=== PATIENT | male | born 1980 | race Caucasian/White ===

== ENCOUNTER → 2016-12-11 | Outpatient (CLI) | payer BC ==
--- NOTE | 2016-12-14 15:23 | SLEEPCENT ---
DATE OF PROCEDURE: 12/11/2016 REQUESTING PROVIDER: Dee Nguyen NP INTERPRETATION: Nocturnal polysomnography was performed for the titration of pressure therapy in this patient with obstructive sleep apnea syndrome, confirmed by karely testing and revealing a respiratory event index of 15.8. For testing, the patient was fit with a Arganteal Simplus full face mask of small size, 4 cm of water pressure were applied to the circuit, and the lights were extinguished. 7 hours and 33 minutes of data were reviewed. There were 373 minutes of sleep identified. Sleep latency was mildly prolonged at 10.5 minutes. Rapid eye movement (REM) latency was prolonged at 183 minutes. Sleep architecture improved over the course of the study. Overall sleep efficiency was 83.8%. The patient's EKG showed a sinus rhythm with an average heart rate of 56 beats per minute. Electroencephalogram (EEG) showed reasonably normal waveforms for awake and sleep. Respiratory events were found best palliated with a CPAP at a pressure of 7. CPAP tolerance was good. There was some limb activity, two trains of 30 events. Limb movement arousal index was borderline at 8.8. IMPRESSION: Obstructive sleep apnea syndrome (G47.33). RECOMMENDATIONS: Nightly use of pressure therapy at 7 cm of water.
== END ==
LOC: M SLEEP 20:00
PROVIDERS: ATTEND Nurse Practitioner Adult Health
DX: G47.33 Obstructive sleep apnea (adult) (pediatric) (principal)

== ENCOUNTER → 2019-01-20 | Outpatient (REF) | payer BC | LOC: M LAB REF 12:24 | PROVIDERS: ATTEND Physician Assistant Medical | DX: J02.9 Acute pharyngitis, unspecified (principal) ==

== ENCOUNTER → 2019-12-03 | Outpatient (REF) | payer BC | LOC: M LAB REF 19:10 | PROVIDERS: ATTEND Physician Assistant | DX: R05 Cough (principal) ==

== ENCOUNTER 2022-06-24 09:56 | Emergency (ER) | payer BC, OTHER ==
[~2022-06-24] VITALS: Ht 167.6 cm; Wt 91.9 kg
[2022-06-24 09:57] VITALS: BP 119/75
== END 2022-06-24 11:15 | disposition home or self-care (01) ==
LOC: M ED 09:56
DX: S62.502A Fracture of unspecified phalanx of left thumb, initial encounter for closed fracture (principal); W23.0XXA Caught, crushed, jammed, or pinched between moving objects, initial encounter; Y92.9 Unspecified place or not applicable; Y93.9 Activity, unspecified; Y99.0 Civilian activity done for income or pay

== ENCOUNTER → 2023-01-14 | Outpatient (REF) | payer OTHER ==
[2023-01-15 20:08] LABS: TESTOSTERONE FREE (DIRECT) 5.3 pg/mL (6.8-21.5)
== END ==
LOC: M LAB REF 13:09
PROVIDERS: ATTEND Physician Assistant Medical
DX: R68.82 Decreased libido (principal)

== ENCOUNTER → 2023-04-18 | Outpatient (REF) | payer OTHER ==
[2023-04-19 12:15] LABS: LUTEINIZING HORMONE 1.4 mIU/ML (1.5-9.3); THYROID STIMULATING HORMONE 1.826 uIU/ML (0.55-4.78)
[2023-04-19 12:16] LABS: FOLLICLE STIMULATING HORMONE 4.4 mIU/ML (1.4-18.1); PROLACTIN 7.9 NG/ML (2.1-17.7)
[2023-04-19 12:17] LABS: FREE T4 1.07 NG/DL (0.89-1.76)
[2023-04-23 12:09] LABS: TESTOSTERONE %FREE+WEAKLY BOUN 32.8 % (9.0-46.0); TESTOSTERONE FREE+WEAKLY BOUND 71.5 ng/dL (40.0-250.0); TESTOSTERONE TOTAL 218 ng/dL (264-916)
== END ==
LOC: M LABDRWAD 13:03
PROVIDERS: ATTEND Nurse Practitioner Family
DX: E29.1 Testicular hypofunction (principal)

== ENCOUNTER → 2024-10-23 | Outpatient (CLI) | payer OTHER | LOC: M EKG 12:02 | PROVIDERS: ATTEND Anesthesiology | DX: R06.81 Apnea, not elsewhere classified (principal); R06.83 Snoring; G47.9 Sleep disorder, unspecified ==

== ENCOUNTER 2024-11-02 08:01 | Day surgery (SDC) | payer OTHER ==
[~2024-11-02] VITALS: Ht 170.2 cm; Wt 95.3 kg
[2024-11-02] MEDS ORDERED: NS (Normal Saline) 0.9% 1,000 ML IV SCH (08:25)
[2024-11-02] MEDS ORDERED: ONDANSETRON 4MG 2ML VIAL As Ordered ONE (08:59)
[2024-11-02] MEDS ORDERED: LIDOCAINE 2% 100MG/5ML SDV (FOR ANES.) As Ordered ONE (08:59)
[2024-11-02] MEDS ORDERED: SUGAMMADEX SODIUM 500 MG/5 ML VIAL (BRIDION) As Ordered ONE (08:59)
[2024-11-02] MEDS ORDERED: ROCURONIUM BROMIDE 50MG/5ML VIAL As Ordered ONE (08:59)
[2024-11-02] MEDS ORDERED: propofoL 200 MG/20 ML VIAL As Ordered ONE (08:59)
[2024-11-02] MEDS ORDERED: fentaNYL 250 MCG/5 ML INJECTION As Ordered ONE (09:04)
[2024-11-02] MEDS ORDERED: MIDAZOLAM INJ 2MG/2ML VIAL As Ordered ONE (09:04)
[2024-11-02] MEDS: COCAINE 4% 4ML NASAL SOLUTION BTL As Ordered ONE (10:13)
[2024-11-02] MEDS: LIDOCAINE W/EPINEPHRINE 1% 20ML VIAL As Ordered ONE (10:54)
[2024-11-02] MEDS: OXYMETAZOLINE 0.05% NASAL SPRAY (AFRIN) As Ordered ONE (10:54)
[2024-11-02] MEDS ORDERED: MEPERIDINE 25 MG/ML 1ML VIAL IV PRN (11:00)
[2024-11-02] MEDS ORDERED: fentaNYL 100 MCG/2 ML INJECTION IV PRN (11:00)
[2024-11-02] MEDS ORDERED: ONDANSETRON 4MG 2ML VIAL IV PRN (11:00)
[2024-11-02] MEDS ORDERED: ACETAMINOPHEN 1000MG/100ML IV BAG As Ordered ONE (11:51)
[2024-11-02 12:20] VITALS: BP 128/80; TEMP 97.6; O2SAT 98
[2024-11-02] MEDS: oxyCODONE 5MG TAB PO PRN (13:08)
== END 2024-11-02 13:19 | disposition home or self-care (01) ==
LOC: M SDC 08:01
PROVIDERS: ATTEND Otolaryngology
DX: J34.3 Hypertrophy of nasal turbinates (principal); J34.2 Deviated nasal septum; G47.30 Sleep apnea, unspecified; Z87.891 Personal history of nicotine dependence; J30.89 Other allergic rhinitis
CPT/HCPCS: 30140; 30520; C9143; J0131; J1100; J2250; J2405; J3010

== ENCOUNTER 2024-11-05 17:57 | Emergency (ER) | payer BC, OTHER ==
[~2024-11-05] VITALS: Ht 170.2 cm; Wt 92.6 kg
[2024-11-05 19:40] LABS: BASO # 0.1 10^3/uL (0.0-0.2); BASO % 0.3 % (0.0-1.0); EOS # 0.2 10^3/uL (0.0-0.5); EOS % 1.2 % (0.0-3.0); HEMATOCRIT 38.5 % (42.0-52.0); HEMOGLOBIN 13.3 g/dl (13.5-17.5); LYMPH # 1.9 10^3/uL (1.5-5.0); LYMPH % 12.6 % (24.0-44.0); MEAN CORPUSCULAR HEMOGLOBIN 29.9 pg (27.0-33.0); MEAN CORPUSCULAR HGB CONC 34.5 g/dl (32.0-36.5); MEAN CORPUSCULAR VOLUME 86.5 fl (80.0-96.0); MONO # 1.3 10^3/uL (0.0-0.8); MONO % 8.4 % (2.0-8.0); NEUTROPHILS # 11.6 10^3/uL (1.5-8.5); PLATELET COUNT, AUTOMATED 374 10^3/uL (150-450); RED BLOOD COUNT 4.45 10^6/uL (4.30-6.10); WHITE BLOOD COUNT 15.1 10^3/uL (4.0-10.0)
[2024-11-05 20:12] VITALS: BP 146/89; TEMP 97.2; O2SAT 98
[2024-11-05] MEDS: dexAMETHasone 4 MG TAB PO ONE (20:18)
[2024-11-05] MEDS: cefTRIAXone SOD 1GM VIAL IM ONE (20:18)
[2024-11-05] MEDS: LIDOCAINE 1% SDV 5ML VIAL DILUENT ONE (20:18)
== END 2024-11-05 20:30 | disposition home or self-care (01) ==
LOC: M ED 17:57
DX: G89.18 Other acute postprocedural pain (principal); G47.30 Sleep apnea, unspecified; Z87.898 Personal history of other specified conditions
CPT/HCPCS: 85025; 86850; 86900; 86901; 96372; 99283; J0696